=== PATIENT | female | born 1995 | race Two or more races ===

== ENCOUNTER → 2021-06-08 | Outpatient (CLI) | payer OTHER ==
--- NOTE | 2021-06-09 11:23 | KCIC ---
XR CERVICAL SPINE 4-5V DATE: 06/08/2021 3:20 PM INDICATION: Pt feels lump to back of her neck. Upper back pain, no injury. : COMPARISON: None. FINDINGS: The cervical spine is visualized to the level of the cervicothoracic junction on the latera l views. Bones/Alignment: No evidence of acute fracture. Reversal of the normal cervical lordosis. There is no listhesis. Normal alignment of the lateral masses of C1 on C2. Joints: The disc space heights are normal. The facets are normally aligned. Soft tissue: No significant prevertebral soft tissue swelling. IMPRESSION: No acute osseous abnormality Electronically signed by: Kd Bates MD (06/09/2021 9:55 AM) [id number]
== END ==
LOC: KCIC 15:11
PROVIDERS: ATTEND Nurse Practitioner Family
DX: R22.1 Localized swelling, mass and lump, neck (principal)
CPT/HCPCS: 72050

== ENCOUNTER → 2021-06-16 | Outpatient (CLI) | payer OTHER ==
--- NOTE | 2021-06-17 11:13 | KCIC ---
EXAMINATION: US HEAD/NECK SOFT TISSUE (SOFT TISSUE ULTRASOUND OF THE POSTERIOR NECK) CLINICAL HISTORY: Nodule midline posterior neck TECHNIQUE: Grayscale and power Doppler ultrasound imaging was performed in the area of concern. COMPARISON: None FINDINGS/ IMPRESSION: No soft tissue mass or collection visualized in the area of concern. Electronically signed by: Mango Call DO (06/17/2021 11:10 AM) [id number]
== END ==
LOC: KCIC US 14:56
PROVIDERS: ATTEND Nurse Practitioner Family
DX: R22.1 Localized swelling, mass and lump, neck (principal)
CPT/HCPCS: 76536